=== PATIENT | male | born 2000 | race Caucasian/White ===

== ENCOUNTER 2023-10-15 13:51 | Outpatient (CLI) | payer BC, SELFPAY ==
--- NOTE | ~2023-10-15 | XR_ITS ---
EXAM: XR foot RT min 3V DATE: 10/15/2023 14:09 HISTORY: RT FOOT PAIN LATERALLY X 3+MONTHS, HX SURGERY X 1 YR . COMPARISON: None available. FINDINGS: Severely decreased mineralization. No fracture or dislocation. No lytic or blastic lesion. Joint spaces are maintained. No erosion or periosteal change. Soft tissues within normal limits. IMPRESSION: Osteopenia, to a degree greater than expected for age. Disuse osteopenia is a possible et iology. Also consider formal bone density evaluation and screening for disorders affecting bone densi ty. Reviewed, dictated and finalized at location [facility]. IMPRESSION: Osteopenia, to a degree greater than expected for age. Disuse osteo penia is a possible etiology. Also consider formal bone density evaluation and screening for disorders affecting bone density.
== END 2023-10-15 13:52 | disposition home or self-care (01) ==
PROVIDERS: PCP Pediatrics; Visit Provider Nurse Practitioner Family
DX: M85.89 Other specified disorders of bone density and structure, multiple sites (principal); Z87.312 Personal history of (healed) stress fracture
CPT/HCPCS: 73630